=== PATIENT | male | born 1975 | race Caucasian/White ===

== ENCOUNTER 2018-05-06 15:35 | Emergency (ER) | payer SELFPAY ==
[~2018-05-06 15:35] MED LIST changes: -BENZ200C15 PO; -LEVO750T44 PO; -METH4TAB66 PO; -TRAM-420 PO
--- NOTE | 2018-05-06 15:36 | ER Report ---
History and Physical Time Seen By MD: 15:36 HPI/ROS CHIEF COMPLAINT: Midsternal chest pain HISTORY OF PRESENT ILLNESS: Patient is a 43-year-old male here with complaints of midsternal chest pain alternating dull and sharp to the left sternal border with radiation to the right upper extremity with tingling in the distal upper extremity. Patient reports having a history of CHF with a pacer, defibrillator placed in 2012 and a subsequent myocardial infarction in 2013 with a stent placed at that time. Patient is from out of town visiting family. Patient was given aspirin, nitroglycerin prior to arrival dropping his pain level from a 10 to a 5. Patient reports taking a baby aspirin daily, risperidone for PTSD but is not on anticoagulants or other medications at this time. Patient is an active smoker admitting to smoking proximally 5 cigarettes per day. Patient reports that time of onset was approximately 1500. REVIEW OF SYSTEMS: Constitutional: No fever, no chills. Eyes: No discharge. ENT: No sore throat. Cardiovascular: + Midsternal chest pain, no palpitations. Respiratory: No cough, + shortness of breath. Gastrointestinal: No abdominal pain, no vomiting. Genitourinary: No hematuria. Musculoskeletal: No back pain. Skin: No rashes. Neurological: + headache, + tingling intermittently in the RUE Allergies: Coded Allergies: No Known Drug Allergies (Unverified , 04/20/18) Home Meds Active Scripts Risperidone (RISPERDAL) 4 Mg Tablet, 4 MG PO HS for 30 Days, #30 TAB 0 Refills Prov:KAMRYN CLIFTON [employer]- 04/20/18 Constitutional Vital Sign - Last 24 Hours 05/06/18 05/06/18 05/06/18 05/06/18 15:37 15:47 15:50 15:51 Pulse 83 Resp 7 B/P (MAP) 131/92 (105) 126/90 (102) 132/98 (109) Pulse Ox 93 05/06/18 05/06/18 05/06/18 05/06/18 15:56 16:00 16:05 16:15 Pulse 76 Resp 25 B/P (MAP) 117/88 (98) 122/80 (94) 127/90 (102) Pulse Ox 92 05/06/18 16:20 Pulse 88 Resp 26 Pulse Ox 92 Physical Exam General Appearance: The patient is alert, has no immediate need for airway protection and no signs of toxicity. Moderate distress secondary to pain Eyes: Pupils equal and round no pallor or injection. ENT, Mouth: Mucous membranes are moist. Respiratory: There are no retractions, lungs are clear to auscultation. Cardiovascular: Regular rate and rhythm. Gastrointestinal: Abdomen is soft and non tender, no masses, bowel sounds normal. Neurological: No focal neurological deficits on examination Skin: Warm and dry, no rashes. Musculoskeletal: Neck is supple non tender. Extremities are nontender, nonswollen and have full range of motion. DIFFERENTIAL DIAGNOSIS: After history and physical exam differential diagnosis was considered for chest pain including but not limited to myocardial ischemia, pericarditis pulmonary embolus, chest wall pain, pleural inflammation and pulmonary infectious causes. Medical Decision Making Data Points Result Diagram: 05/06/18 1543 05/06/18 1543 Laboratory Hematology Test 05/06/18 15:43 Red Blood Count 5.34 M/uL (4.00-5.60) Mean Corpuscular Volume 81.9 fL (80.0-96.0) Mean Corpuscular Hemoglobin 27.9 pg (26.0-33.0) Mean Corpuscular Hemoglobin Concent 34.1 g/dL (32.0-36.0) Red Cell Distribution Width 13.3 % (11.5-14.5) Mean Platelet Volume 9.7 fL (7.2-11.1) Neutrophils (%) (Auto) 48.6 % (39.4-72.5) Lymphocytes (%) (Auto) 35.7 % (17.6-49.6) Monocytes (%) (Auto) 9.6 % (4.1-12.4) Eosinophils (%) (Auto) 5.5 % (0.4-6.7) Basophils (%) (Auto) 0.6 % (0.3-1.4) Nucleated RBC Relative Count (auto) 0.1 /100WBC Neutrophils # (Auto) 4.1 K/uL (2.0-7.4) Lymphocytes # (Auto) 3.0 K/uL (1.3-3.6) Monocytes # (Auto) 0.8 K/uL (0.3-1.0) Eosinophils # (Auto) 0.5 K/uL (0.0-0.5) Basophils # (Auto) 0.1 K/uL (0.0-0.1) Nucleated RBC Absolute Count (auto) 0.01 K/uL Sodium Level 141 mmol/L (137-145) Potassium Level 4.0 mmol/L (3.5-5.0) Chloride Level 108 mmol/L (98-107) Carbon Dioxide Level 22 mmol/L (22-30) Blood Urea Nitrogen 13 mg/dl (9-21) Creatinine 0.90 mg/dl (0.66-1.25) Glomerular Filtration Rate Calc > 60.0 Random Glucose 86 mg/dl (75-110) Calcium Level 9.5 mg/dl (8.4-10.2) Total Bilirubin 0.5 mg/dl (0.2-1.3) Aspartate Amino Transf (AST/SGOT) 34 U/L (0-35) Alanine Aminotransferase (ALT/SGPT) 57 U/L (0-56) Alkaline Phosphatase 82 U/L (0-126) Troponin I < 0.012 ng/ml B-Type Natriuretic Peptide 8 pg/ml (0-100) Total Protein 7.6 g/dl (6.3-8.2) Albumin 4.2 g/dl (3.5-5.0) Chemistry Test 05/06/18 15:43 White Blood Count 8.5 k/uL (4.5-11.0) Red Blood Count 5.34 M/uL (4.00-5.60) Hemoglobin 14.9 g/dL (14.0-18.0) Hematocrit 43.7 % (42.0-52.0) Mean Corpuscular Volume 81.9 fL (80.0-96.0) Mean Corpuscular Hemoglobin 27.9 pg (26.0-33.0) Mean Corpuscular Hemoglobin Concent 34.1 g/dL (32.0-36.0) Red Cell Distribution Width 13.3 % (11.5-14.5) Platelet Count 240 K/uL (150-450) Mean Platelet Volume 9.7 fL (7.2-11.1) Neutrophils (%) (Auto) 48.6 % (39.4-72.5) Lymphocytes (%) (Auto) 35.7 % (17.6-49.6) Monocytes (%) (Auto) 9.6 % (4.1-12.4) Eosinophils (%) (Auto) 5.5 % (0.4-6.7) Basophils (%) (Auto) 0.6 % (0.3-1.4) Nucleated RBC Relative Count (auto) 0.1 /100WBC Neutrophils # (Auto) 4.1 K/uL (2.0-7.4) Lymphocytes # (Auto) 3.0 K/uL (1.3-3.6) Monocytes # (Auto) 0.8 K/uL (0.3-1.0) Eosinophils # (Auto) 0.5 K/uL (0.0-0.5) Basophils # (Auto) 0.1 K/uL (0.0-0.1) Nucleated RBC Absolute Count (auto) 0.01 K/uL Glomerular Filtration Rate Calc > 60.0 Calcium Level 9.5 mg/dl (8.4-10.2) Total Bilirubin 0.5 mg/dl (0.2-1.3) Aspartate Amino Transf (AST/SGOT) 34 U/L (0-35) Alanine Aminotransferase (ALT/SGPT) 57 U/L (0-56) Alkaline Phosphatase 82 U/L (0-126) Troponin I < 0.012 ng/ml B-Type Natriuretic Peptide 8 pg/ml (0-100) Total Protein 7.6 g/dl (6.3-8.2) Albumin 4.2 g/dl (3.5-5.0) EKG/Imaging EKG Interpretation 12 lead EKG: Normal sinus rhythm, ventricular rate 81, QTC 429, no ischemic changes or arrhythmias present. Rhythm: normal sinus rhythm [place]: normal QRS: normal ST segments: normal Monitor Interpretation: Normal Sinus Rhythm Imaging Location: [facility] - [place] Patient: Real Oseguera : 1975 Visit/Account:[id number] Date of Sevice: 05/06/2018 EXAMINATION: Portable AP Chest HISTORY: Chest pain. COMPARISON: None. FINDINGS: The lungs are clear. No focal consolidation or pleural effusion. No pneumothorax. Normal cardiomediastinal silhouette with normal heart size and pulmonary vascularity. A cardiac loop recorder projects over the mid left chest. Visualized osseous structures appear intact. IMPRESSION: No evidence of acute cardiopulmonary disease. ED Course/Re-evaluation ED Course Patient is a 43-year-old male here with complaints of midsternal chest pain starting approximately 1500, located in the mid sternum and left sternal border with radiation across the chest into the right upper extremity with paresthesias. Patient does have a history significant for heart failure with pacer and defibrillator placement in 2012, myocardial infarction with stent placement in 2013. Patient is from out of town visiting family, was given aspirin and nitroglycerin prior to arrival trapping patient's pain from 10-5. EKG showed no ischemic changes or ST elevations. Initial labs were unremarkable, troponin was negative, chest x-ray showed no acute findings. 2nd troponin ordered for 1900 4 hours post symptom onset. Patient decided that he did not wish to stay for the 2nd troponin lab test. I explained to the patient that at this time we are unable to rule out a myocardial infarction and that he is at risk for decompensation, , permanent disability if he leaves a heart attack untreated. Patient reported that he was feeling better and had no interest in staying in spite of knowing the risks. Patient signed the AMA form and voice understanding of his risks. I advised him that he was accompanied to return at any time for further evaluation and care and workup. Patient voiced unde rstanding. Decision to Disposition Date: May 06, 2018 Decision to Disposition Time: 16:59 Depart Departure Latest Vital Signs Vital Signs Date Time Temp Pulse Resp B/P (MAP) Pulse Ox O2 Delivery O2 Flow Rate FiO2 05/06/18 16:20 88 26 92 05/06/18 16:15 127/90 (102) Impression: Primary Impression: Chest pain Condition: Improved Disposition: AGAINST MED ADV / DISCONT CARE Patient Instructions: Chest Pain (DC) Additional Instructions: You have chosen to leave against medical advice. Your current workup and evaluation for chest pain is currently not complete. We are unable to say at this time if you had a cardiac event such as a heart attack. You may return at any time to complete this workup as you are always welcome to return to our facility for further treatment and care. LUCIE CALDERÓN DO May 06, 2018 15:36
[2018-05-06] MEDS ORDERED: NS(*) 0.9% 1000 ML BAG 1,000 ML IV ONE (15:37)
[2018-05-06] MEDS ORDERED: NITROGLYCERIN 0.4 MG SUBL SL SCH (15:40)
--- NOTE | 2018-05-06 15:48 | EKG ---
FACILITY: [facility] - [place] PATIENT NAME: EVELYNE SUTTON : [id number] MR: [id number] V: [id number] EXAM DATE: ORDERING PHYSICIAN: LUCIE CALDERÓN TECHNOLOGIST: ALEXSANDER Test Reason : CP Blood Pressure : / mmHG Vent. Rate : 081 BPM Atrial Rate : 081 BPM P-R Int : 122 ms QRS Dur : 082 ms QT Int : 370 ms P-R-T Axes : 052 058 059 degrees QTc Int : 429 ms Normal sinus rhythm Normal ECG No previous ECGs available Confirmed by GEOVANI BELLAMY ([id number]) on 05/06/2018 8:04:26 PM Referred By: STEPHANE Confirmed By:GEOVANI BELLAMY
[2018-05-06 15:56] LABS: PLATELET COUNT, AUTOMATED 240 K/uL (150-450)
--- NOTE | 2018-05-06 16:36 | RADIOLOGY IMAGING REPORT ---
FACILITY: [facility] - [place] PATIENT NAME: Real Oseguera : 1975 MR: [id number] V: [id number] EXAM DATE: ORDERING PHYSICIAN: LUCIE CALDERÓN TECHNOLOGIST: Location: [facility] - [place] Patient: Real Oseguera : 1975 Visit/Account:[id number] Date of Sevice: 05/06/2018 EXAMINATION: Portable AP Chest HISTORY: Chest pain. COMPARISON: None. FINDINGS: The lungs are clear. No focal consolidation or pleural effusion. No pneumothorax. Normal cardiomediastinal silhouette with normal heart size and pulmonary vascularity. A cardiac loop recorder projects over the mid left chest. Visualized osseous structures appear intact. IMPRESSION: No evidence of acute cardiopulmonary disease. Report Dictated By: Antelmo Kennedy MD at 05/06/2018 4:28 PM Report E-Signed By: Antelmo Kennedy MD at 05/06/2018 4:32 PM WSN:[email or web address]
[2018-05-06 16:45] VITALS: BP 127/81
== END 2018-05-06 17:10 | disposition left against medical advice (07) ==
LOC: ER 15:37
DX: R07.9 Chest pain, unspecified (principal); F17.210 Nicotine dependence, cigarettes, uncomplicated
CPT/HCPCS: 71045; 83880; 84484; 85025; 93005; 96360; 99284; J7030; 82040; 82247; 82310; 82374; 82435; 82565; 82947; 84075; 84132; 84155; 84295; 84450; 84460; 84520

== ENCOUNTER → 2018-05-06 | Outpatient (CLI) | payer SELFPAY ==
[~2018-05-06] MED LIST: BENZ200C15 PO; LEVO750T44 PO; METH4TAB66 PO; RISP4TAB99 PO; TRAM-420 PO
== END ==
LOC: AMB 15:13
PROVIDERS: ATTEND Nurse Practitioner
DX: R07.9 Chest pain, unspecified (principal); R07.1 Chest pain on breathing; Z95.0 Presence of cardiac pacemaker; I50.9 Heart failure, unspecified
CPT/HCPCS: A0425; A0427

== ENCOUNTER 2018-05-11 16:18 | Emergency (ER) | payer SELFPAY ==
--- NOTE | 2018-05-11 16:23 | ER Report ---
History and Physical Time Seen By MD: 16:23 HPI/ROS CHIEF COMPLAINT: Cough HISTORY OF PRESENT ILLNESS: This is a 43-year-old male who presents to the emergency department for any cough. The patient states he had a dry, non productive cough that developed today and has been increasing in intensity, now has a sore throat from some much coughing. The patient has had several episodes of pneumonia and bronchitis in the past. No nausea or vomiting at this time, no chest pain. No fevers or chills. No headaches or rashes. The patient is continuously rubbing his not and is very anxious, states he has very bad seasonal allergies. REVIEW OF SYSTEMS: Constitutional: No fever, no chills. Eyes: No discharge. ENT: As above. Cardiovascular: No chest pain, no palpitations. Respiratory: As above. Gastrointestinal: No abdominal pain, no vomiting. Genitourinary: No hematuria. Musculoskeletal: No back pain. Skin: No rashes. Neurological: No headache. Allergies: Coded Allergies: No Known Drug Allergies (Unverified , 04/20/18) Home Meds Active Scripts Benzonatate (BENZONATATE) 200 Mg Capsule, 200 MG PO TID PRN for COUGH, #15 CAP Prov:KAMRYN CLIFTON [facility] 05/11/18 Methylprednisolone (METHYLPREDNISOLONE) 4 Mg Tab.ds.pk, 4 MG PO DIRECTED, #1 PACK 0 Refills Prov:ETIENNEKAMRYN L [facility]- 05/11/18 Risperidone (RISPERDAL) 4 Mg Tablet, 4 MG PO HS, #7 TAB Prov:KAMRYN CLIFTON [facility]- 05/11/18 Risperidone (RISPERDAL) 4 Mg Tablet, 4 MG PO HS for 30 Days, #30 TAB 0 Refills Prov:ETIENNEKAMRYN Ke [facility] 04/20/18 Past Medical/Surgical History The patient has a past medical and surgical history of heart attack, AICD, regular heartbeat, congestive heart failure, PTSD. Reviewed Nurses Notes: Yes Constitutional Vital Sign - Last 24 Hours 05/11/18 05/11/18 05/11/18 05/11/18 16:18 16:23 16:24 16:30 Temp 97.3 Pulse ??? 112 Resp 20 B/P (MAP) 132/74 132/74 (93) 114/80 (91) Pulse Ox 92 O2 Delivery Room Air 05/11/18 05/11/18 05/11/18 05/11/18 16:48 16:53 16:53 17:02 Pulse 118 111 121 Resp 18 18 Pulse Ox 96 97 O2 Delivery Room Air 05/11/18 05/11/18 05/11/18 05/11/18 17:18 17:30 17:48 18:00 Pulse 103 100 B/P (MAP) 110/78 (89) 67/29 (42) Pulse Ox 98 97 05/11/18 05/11/18 05/11/18 05/11/18 18:03 18:03 18:10 18:12 Pulse 100 108 Resp 18 B/P (MAP) 108/77 (87) Pulse Ox 96 O2 Delivery Room Air 05/11/18 05/11/18 05/11/18 18:17 18:30 18:47 Pulse 109 114 B/P (MAP) 79/55 (63) Pulse Ox 95 94 Physical Exam General Appearance: The patient is alert, has no immediate need for airway protection and no signs of toxicity, very dry, persistent non-productive, hacking cough. Eyes: Pupils equal and round no pallor or injection. ENT, Mouth: Mucous membranes are dry, erythematous of the posterior oropharynx, no petechiae, uvula midline. Mild tonsillar hypertrophy. Respiratory: There are no retractions, slightly diminished in the right upper and lower saravia with coarse sounding to the right lower field. Cardiovascular: Regular rate and rhythm, no murmurs, clicks or rubs. Gastrointestinal: Abdomen is soft and non tender, no masses, bowel sounds normal. Neurological: Alert and oriented 4. Moving all extremities. Following all commands. No focal neuro deficits. Skin: Warm and dry, no rashes. Musculoskeletal: Neck is supple non tender. Extremities are nontender, nonswollen and have full range of motion. DIFFERENTIAL DIAGNOSIS: After history and physical exam differential diagnosis was considered for pneumonia, bronchitis, pertussis, strep throat, viral syndrome, influenza. Medical Decision Making Data Points Result Diagram: 05/11/18 1700 05/11/18 1700 Laboratory Hematology Test 05/11/18 17:00 Red Blood Count 5.33 M/uL (4.00-5.60) Mean Corpuscular Volume 79.6 fL (80.0-96.0) Mean Corpuscular Hemoglobin 27.3 pg (26.0-33.0) Mean Corpuscular Hemoglobin Concent 34.3 g/dL (32.0-36.0) Red Cell Distribution Width 13.3 % (11.5-14.5) Mean Platelet Volume 9.7 fL (7.2-11.1) Neutrophils (%) (Auto) 57.3 % (39.4-72.5) Lymphocytes (%) (Auto) 28.6 % (17.6-49.6) Monocytes (%) (Auto) 12.1 % (4.1-12.4) Eosinophils (%) (Auto) 1.5 % (0.4-6.7) Basophils (%) (Auto) 0.5 % (0.3-1.4) Nucleated RBC Relative Count (auto) 0.2 /100WBC Neutrophils # (Auto) 7.0 K/uL (2.0-7.4) Lymphocytes # (Auto) 3.5 K/uL (1.3-3.6) Monocytes # (Auto) 1.5 K/uL (0.3-1.0) Eosinophils # (Auto) 0.2 K/uL (0.0-0.5) Basophils # (Auto) 0.1 K/uL (0.0-0.1) Nucleated RBC Absolute Count (auto) 0.03 K/uL Sodium Level 142 mmol/L (137-145) Potassium Level 4.0 mmol/L (3.5-5.0) Chloride Level 110 mmol/L (98-107) Carbon Dioxide Level 16 mmol/L (22-30) Blood Urea Nitrogen 20 mg/dl (9-21) Creatinine 1.50 mg/dl (0.66-1.25) Glomerular Filtration Rate Calc 50.8 Random Glucose 73 mg/dl (75-110) Calcium Level 9.8 mg/dl (8.4-10.2) Total Bilirubin 2.1 mg/dl (0.2-1.3) Aspartate Amino Transf (AST/SGOT) 52 U/L (0-35) Alanine Aminotransferase (ALT/SGPT) 55 U/L (0-56) Alkaline Phosphatase 101 U/L (0-126) Total Protein 8.0 g/dl (6.3-8.2) Albumin 4.4 g/dl (3.5-5.0) Chemistry Test 05/11/18 17:00 White Blood Count 12.3 k/uL (4.5-11.0) Red Blood Count 5.33 M/uL (4.00-5.60) Hemoglobin 14.5 g/dL (14.0-18.0) Hematocrit 42.4 % (42.0-52.0) Mean Corpuscular Volume 79.6 fL (80.0-96.0) Mean Corpuscular Hemoglobin 27.3 pg (26.0-33.0) Mean Corpuscular Hemoglobin Concent 34.3 g/dL (32.0-36.0) Red Cell Distribution Width 13.3 % (11.5-14.5) Platelet Count 272 K/uL (150-450) Mean Platelet Volume 9.7 fL (7.2-11.1) Neutrophils (%) (Auto) 57.3 % (39.4-72.5) Lymphocytes (%) (Auto) 28.6 % (17.6-49.6) Monocytes (%) (Auto) 12.1 % (4.1-12.4) Eosinophils (%) (Auto) 1.5 % (0.4-6.7) Basophils (%) (Auto) 0.5 % (0.3-1.4) Nucleated RBC Relative Count (auto) 0.2 /100WBC Neutrophils # (Auto) 7.0 K/uL (2.0-7.4) Lymphocytes # (Auto) 3.5 K/uL (1.3-3.6) Monocytes # (Auto) 1.5 K/uL (0.3-1.0) Eosinophils # (Auto) 0.2 K/uL (0.0-0.5) Basophils # (Auto) 0.1 K/uL (0.0-0.1) Nucleated RBC Absolute Count (auto) 0.03 K/uL Glomerular Filtration Rate Calc 50.8 Calcium Level 9.8 mg/dl (8.4-10.2) Total Bilirubin 2.1 mg/dl (0.2-1.3) Aspartate Amino Transf (AST/SGOT) 52 U/L (0-35) Alanine Aminotransferase (ALT/SGPT) 55 U/L (0-56) Alkaline Phosphatase 101 U/L (0-126) Total Protein 8.0 g/dl (6.3-8.2) Albumin 4.4 g/dl (3.5-5.0) EKG/Imaging [facility] [place] Patient: Real Oseguera : 1975 Visit/Account:[id number] Date of Sevice: 05/11/2018 Exam type: CHEST PA LAT History: Cough Comparison: May 06, 2018. Findings: The lungs are free of acute effusions infiltrates or edema. No evidence of a pneumothorax or pneumomediastinum. The cardiac silhouette is normal in size. The trachea is in midline. A fine linear metallic density projects over the lower neck appears to be located anteriorly and incompletely imaged on the lateral view. potline monitor overlies the left hilar region on the PA view IMPRESSION: 1. No acute cardiac primary process is seen Report Dictated By: Ashley Buchanan MD at 05/11/2018 5:33 PM Report E-Signed By: Ashley Buchanan MD at 05/11/2018 5:35 PM WSN:[email or web address] ED Course/Re-evaluation Clinical Indication for ER IV: Hydration, IV Access ED Course The patient was admitted to room. A history and physical were obtained. Differential diagnoses were considered. An IV was started. A CBC, CMP and pertussis were obtained. A two-view chest x-ray is obtained. Patient was given DuoNeb 2 with mild relief, also given nebulized lidocaine which did seem to help with some of his cough. Given the 125 mg IV site Medrol, 24 mg IV Benadryl. CBC showing white count of 12.3, CMP chloride 110, CO2 16, creatinine 1.5, AST 52, total bilirubin 2.1, pertussis is a send out if the results are positive patient will be contacted immediately. I reviewed the results with the patient and his . Patient continues to have a dry nonproductive cough, patient continues to rub his nose, he did state that he is affected by the allergens in the air here, does have severe seasonal allergies. The patient has also misplaced his Risperdal again, I did tell him that I would give him just a seven-day supply and that was it, I would not refill this. He does have a follow-up appointment with the MA when [place] asked week. I also recommended [id number] treatment for his seasonal allergies. He was also given a prescription for Medrol Dosepak and his azithromycin. With the patient's history I did go ahead and treat with antibiotics as this could be an atypical pneumonia presentation. I also sent him with some benzonatate to help with his cough. The patient was in agreement with this plan of care and discharged home. Decision to Disposition Date: May 11, 2018 Decision to Disposition Time: 18:46 Depart Departure Latest Vital Signs Vital Signs Date Time Temp Pulse Resp B/P (MAP) Pulse Ox O2 Delivery O2 Flow Rate FiO2 05/11/18 18:47 114 94 05/11/18 18:30 79/55 (63) 05/11/18 18:03 Room Air 05/11/18 18:03 18 05/11/18 16:23 97.3 Impression: Primary Impression: Cough Additional Impression: Seasonal allergies Condition: Improved Disposition: HOME OR SELF-CARE New Scripts Benzonatate (BENZONATATE) 200 Mg Capsule 200 MG PO TID PRN for COUGH, #15 CAP Prov: KAMRYN CLIFTON [facility]- 05/11/18 Methylprednisolone (METHYLPREDNISOLONE) 4 Mg Tab.ds.pk 4 MG PO DIRECTED, #1 PACK 0 Refills Prov: KAMRYN CLIFTON [facility] 05/11/18 Risperidone (RISPERDAL) 4 Mg Tablet 4 MG PO HS, #7 TAB Prov: KAMRYN CLIFTON [facility] 05/11/18 Patient Instructions: Acute Cough (ED), Viral Syndrome (ED) Additional Instructions: The acute cough is likely a viral illness that could be complicated by seasonal allergies. I only refilled 7 days of the risperidol, we can not keep filling these medications, even if you lose them. Follow up with the MA next week in [place]. Take the Azithromycin as directed. Take the prednisone as directed. Use the Benzonatate for the cough. Drink plenty of water. Get plenty of rest. Return to the ED for any other concerns or worsening symptoms. Problem Qualifiers KAMRYN CLIFTON [facility]- May 11, 2018 16:23
[2018-05-11] MEDS ORDERED: NS(*) 0.9% 1000 ML BAG 1,000 ML IV ONE (16:40)
[2018-05-11] MEDS ORDERED: LIDOCAINE 4% SOLN 50 ML BTL TP ONE (16:40)
[2018-05-11] MEDS ORDERED: ALBUTEROL/IPRATROPIUM 3 ML NEB NEB ONE ×2 (16:40→18:00)
[2018-05-11] MEDS ORDERED: LIDOCAINE MPF 4% 200MG/5ML AMP TP ONE (16:50)
[2018-05-11 17:20] LABS: PLATELET COUNT, AUTOMATED 272 K/uL (150-450)
--- NOTE | 2018-05-11 17:39 | RADIOLOGY IMAGING REPORT ---
FACILITY: [facility] - [place] PATIENT NAME: Real Oseguera : 1975 MR: [id number] V: [id number] EXAM DATE: ORDERING PHYSICIAN: KAMRYN CLIFTON TECHNOLOGIST: Location: [facility] Patient: Real Oseguera : 1975 Visit/Account:[id number] Date of Sevice: 05/11/2018 Exam type: CHEST PA LAT History: Cough Comparison: May 06, 2018. Findings: The lungs are free of acute effusions infiltrates or edema. No evidence of a pneumothorax or pneumom ediastinum. The cardiac silhouette is normal in size. The trachea is in midline. A fine linear met allic density projects over the lower neck appears to be located anteriorly and incompletely imaged o n the lateral view. art gallery director overlies the left hilar region on the PA view IMPRESSION: 1. No acute cardiac primary process is seen Report Dictated By: Ashley Buchanan MD at 05/11/2018 5:33 PM Report E-Signed By: Ashley Buchanan MD at 05/11/2018 5:35 PM WSN:[id number]
[2018-05-11] MEDS ORDERED: methylPREDNIS SUCC 125 MG/2ML IVP ONE (18:00)
[2018-05-11 18:30] VITALS: BP 79/55
[2018-05-11] MEDS ORDERED: diphenhydrAMINE 50 MG/ML VIAL IVP ONE (18:30)
[2018-05-11] MEDS ORDERED: RISP4TAB99 PO (18:49)
[2018-05-11] MEDS ORDERED: METH4TAB66 PO (18:52)
[2018-05-11] MEDS ORDERED: BENZ200C15 PO (18:52)
== END 2018-05-11 19:07 | disposition home or self-care (01) ==
LOC: ER 16:23
DX: R05 Cough (principal); J30.2 Other seasonal allergic rhinitis
CPT/HCPCS: 71046; 85025; 86615; 94640; 96361; 96374; 96375; 99284; J1200; J2001; J2930; J7030; J7620; 82040; 82247; 82310; 82374; 82435; 82565; 82947; 84075; 84132; 84155; 84295; 84450; 84460; 84520

== ENCOUNTER 2018-05-14 09:12 | Emergency (ER) | payer SELFPAY ==
[~2018-05-14 09:12] MED LIST changes: +BENZ200C15 PO; +METH4TAB66 PO
--- NOTE | 2018-05-14 09:35 | ER Report ---
History and Physical Time Seen By MD: 09:35 Hx. of Stated Complaint: swollen r side nose and face, pus in r nostril, coughing and sore throat, throat feels like it's swelling and hard to swallow HPI/ROS CHIEF COMPLAINT: Swollen right nostril and face, purulent material present in right nostril, coughing, sore throat HISTORY OF PRESENT ILLNESS: Patient is a 43-year-old male here with complaints of the above. Patient reportedly was seen for similar symptoms on the and was given a prescription for a Z-Gabriel however the patient did not fill the prescription due to cost. Patient reports worsening cough, worsening sore throat now with raspy voice, right nostril swelling with mild purulent drainage. Patient was hemodynamically stable, maintaining oxygen saturations greater than 94%, afebrile during ED course. REVIEW OF SYSTEMS: Constitutional: Subjective fever, and chills. Eyes: No discharge. ENT: + sore throat, + right nostril swelling, mild purulent drainage Cardiovascular: No chest pain, no palpitations. Respiratory: + cough, + shortness of breath. Gastrointestinal: No abdominal pain, no vomiting. Genitourinary: No hematuria. Musculoskeletal: No back pain. Skin: No rashes. Neurological: + headache. Allergies: Coded Allergies: Sulfa (Sulfonamide Antibiotics) (Verified Allergy, Unknown, 05/14/18) Home Meds Active Scripts Levofloxacin 750 Mg Tab (LEVAQUIN 750 MG TAB) 750 Mg Tablet, 750 MG PO QDAY for 5 Days, #5 TAB Prov:LUCIE CALDERÓN DO 05/14/18 Tramadol Hcl (TRAMADOL HCL) 50 Mg Tablet, 50 MG PO Q6H PRN for PAIN, #20 TAB 0 Refills Prov:LUCIE CALDERÓN S DO 05/14/18 Benzonatate (BENZONATATE) 200 Mg Capsule, 200 MG PO TID PRN for COUGH, #15 CAP Prov:KAMRYN CLIFTON PATIENT SERVICES MANAGER-BC 05/11/18 Risperidone (RISPERDAL) 4 Mg Tablet, 4 MG PO HS, #7 TAB Prov:KAMRYN CLIFTON PATIENT SERVICES MANAGER-BC 05/11/18 Risperidone (RISPERDAL) 4 Mg Tablet, 4 MG PO HS for 30 Days, #30 TAB 0 Refills Prov:KAMRYN CLIFTON PATIENT SERVICES MANAGER-BC 04/20/18 Discontinued Scripts Methylprednisolone (METHYLPREDNISOLONE) 4 Mg Tab.ds.pk, 4 MG PO DIRECTED, #1 PACK 0 Refills Prov:KAMRYN CLIFTON PATIENT SERVICES MANAGER-BC 05/11/18 Constitutional Vital Sign - Last 24 Hours 05/14/18 05/14/18 05/14/18 05/14/18 09:12 09:27 09:27 09:28 Temp 98.5 Pulse ? 86 Resp 18 B/P (MAP) 131/88 131/88 (102) Pulse Ox 97 O2 Delivery Room Air 05/14/18 05/14/18 05/14/18 05/14/18 09:42 09:57 10:00 10:12 Pulse 102 82 ??? Resp 20 11 B/P (MAP) 115/88 (97) Pulse Ox 95 93 05/14/18 05/14/18 05/14/18 05/14/18 10:27 10:30 10:42 10:57 Pulse 85 85 85 Resp 6 15 19 B/P (MAP) 117/89 (98) Pulse Ox 96 95 92 05/14/18 11:00 B/P (MAP) 100/83 (89) Physical Exam General Appearance: The patient is alert, has no immediate need for airway protection and no signs of toxicity. Moderate distress secondary to pain Eyes: Pupils equal and round no pallor or injection. ENT, Mouth: Mucous membranes are moist, + mild erythema without exudates of the posterior oropharynx, right-sided nasal swelling with erythema and scant purulent drainage. Respiratory: There are no retractions, lungs are clear to auscultation, + cough nonproductive of sputum Cardiovascular: Regular rate and rhythm. Gastrointestinal: Abdomen is soft and non tender, no masses, bowel sounds mayra l. Neurological: No focal neurological deficits Skin: Warm and dry, no rashes. Musculoskeletal: Neck is supple non tender. Extremities are nontender, nonswollen and have full range of motion. DIFFERENTIAL DIAGNOSIS: After history and physical exam differential diagnosis was considered for pharyngitis, abscess, viral syndrome, atypical pneumonia Medical Decision Making EKG/Imaging Monitor Interpretation: Normal Sinus Rhythm Imaging Location: [facility] Patient: Real Oseguera : 1975 Visit/Account:[id number] Date of Sevice: 05/14/2018 Exam type: CHEST PA LAT History: cough Comparison: 05/13/2018. Findings: Lungs are hyperinflated but otherwise clear. There is no focal consolidation, pleural effusion or pneumothorax. Heart size is normal. The osseous structures are unremarkable. Subcutaneous loop recorder projects over the anterior chest wall. IMPRESSION: 1. No acute cardiopulmonary disease. 2. Subcutaneous loop recorder projects over the anterior chest wall. ED Course/Re-evaluation ED Course Patient is a 43-year-old male here with complaints of subjective fevers, cough, sore throat, right nasal edema and purulent drainage. Patient was evaluated on the for similar symptoms and was prescribed a Z-Gabriel however the patient did not fill this due to monetary concerns. Patient reports worsening symptoms since last visit. Patient was hemodynamically stable, afebrile during course. He was given Decadron, ceftriaxone for antimicrobial coverage, ibuprofen and tramadol for analgesia. I visualized the right nostril using a nasal speculum and lanced a small pocket of fluid due to concern for a microabscess. Patient did tolerate oral intake. Patient was given prescriptions for Levaquin, tramadol for outpatient treatment. Close PCP follow-up recommended, return precautions provided. Patient voiced understanding of plan. Procedure A small microabscess was identified in the patient's right nostril using a nasal speculum. The pocket of fluid collection was lanced using an 11 blade. Scant purulent drainage and blood were expressed from the site. Patient tolerated procedure well, hemostasis was achieved. Decision to Disposition Date: May 14, 2018 Decision to Disposition Time: 11:03 Depart Departure Latest Vital Signs Vital Signs Date Time Temp Pulse Resp B/P (MAP) Pulse Ox O2 Delivery O2 Flow Rate FiO2 05/14/18 11:00 100/83 (89) 05/14/18 10:57 85 19 92 05/14/18 09:27 98.5 Room Air Impression: Primary Impression: Cough Additional Impression: Sore throat Condition: Improved Disposition: HOME OR SELF-CARE New Scripts Levofloxacin 750 Mg Tab (LEVAQUIN 750 MG TAB) 750 Mg Tablet 750 MG PO QDAY for 5 Days, #5 TAB Prov: LUCIE CALDERÓN DO 05/14/18 Tramadol Hcl (TRAMADOL HCL) 50 Mg Tablet 50 MG PO Q6H PRN for PAIN, #20 TAB 0 Refills Prov: LUCIE CALDERÓN DO 05/14/18 Patient Instructions: Acute Cough (GEN) Additional Instructions: Please drink plenty of water. You may take 1 tramadol every 6-8 hours as needed for pain control. Please take Levaquin 750 mg daily for the next 5 days. Please return immediately if you develop increased swelling, increased pain, inability to keep down food or fluids, difficulty swallowing, high fevers, increased fatigue or weakness. Please follow-up with your family doctor in the next 24-48 hours for reevaluation and care. Problem Qualifiers LUCIE CALDERÓN DO May 14, 2018 09:35
[2018-05-14] MEDS ORDERED: DEXAMETHASONE SOD PHOS 10MG/ML IM ONE (09:55)
[2018-05-14] MEDS ORDERED: cefTRIAXone 1 GM VIAL IM ONE (09:55)
[2018-05-14] MEDS ORDERED: LIDOCAINE 1% MDV 200 MG/20 ML INJ ONE (09:55)
--- NOTE | 2018-05-14 10:28 | RADIOLOGY IMAGING REPORT ---
FACILITY: [facility] PATIENT NAME: Real Oseguera : 1975 MR: [id number] V: [id number] EXAM DATE: ORDERING PHYSICIAN: LUCIE CALDERÓN TECHNOLOGIST: [place] [facility] [place] Real Oseguera : 1975 Visit/Account:[id number] Date of Sevice: 05/14/2018 Exam type: CHEST PA LAT History: cough Comparison: 05/13/2018. Findings: Lungs are hyperinflated but otherwise clear. There is no focal consolidation, pleural effusion or pne umothorax. Heart size is normal. The osseous structures are unremarkable. Subcutaneous loop recorder projects over the anterior chest wall. IMPRESSION: 1. No acute cardiopulmonary disease. 2. Subcutaneous loop recorder projects over the anterior chest wall. Report Dictated By: Gonzalo Godinez MD at 05/14/2018 10:23 AM Report E-Signed By: Gonzalo Godinez MD at 05/14/2018 10:24 AM WSN:[id number]
[2018-05-14 11:00] VITALS: BP 100/83
[2018-05-14] MEDS ORDERED: IBUPROFEN 800 MG TAB PO ONE (11:00)
[2018-05-14] MEDS ORDERED: traMADol 50 MG TAB PO ONE (11:00)
[2018-05-14] MEDS ORDERED: LEVO750T44 PO (11:14)
[2018-05-14] MEDS ORDERED: TRAM-420 PO (11:14)
== END 2018-05-14 11:29 | disposition home or self-care (01) ==
LOC: ER 09:47
DX: R05 Cough (principal); J02.9 Acute pharyngitis, unspecified; J34.0 Abscess, furuncle and carbuncle of nose
CPT/HCPCS: 71046; 96372; 99284; J0696; J1100; J2001